=== PATIENT | male | born 1975 | race Hispanic/Latino ===

== ENCOUNTER 2021-02-04 12:49 | Emergency (ER) | payer OTHER ==
[~2021-02-04] VITALS: Ht 165.1 cm; Wt 59.0 kg
[2021-02-04 14:25] VITALS: BP 108/71
[2021-02-04 17:35] LABS: HEMATOCRIT 42.4 % (42-54); MEAN CORPUSCULAR HEMOGLOBIN 31.5 pg (27.0-33.0); MEAN CORPUSCULAR HGB CONC 34.4 g/dL (32.0-36.0); MEAN CORPUSCULAR VOLUME 91.4 fL (79-99); PLATELET COUNT (AUTO) 138 K/uL (130-400); RED BLOOD CELL COUNT(AUTO) 4.64 MIL/uL (4.50-6.20); RED CELL DISTRIBUTION WIDTH 12.6 % (11.0-15.5); WHITE BLOOD COUNT (AUTO) 6.5 K/uL (4.8-10.8)
[2021-02-04 17:37] LABS: APPEARANCE,URINE Clear (CLEAR); BILIRUBIN,URINE Negative (NEGATIVE); COLOR,URINE Yellow (YELLOW); GLUCOSE, URINE (UA) Negative (NEGATIVE); KETONES,URINE Trace mg/dL (NEGATIVE); LEUKOCYTE ESTERASE ,URINE Negative (NEGATIVE); NITRATE,URINE Negative (NEGATIVE); OCCULT BLOOD,URINE Negative (NEGATIVE); PH,URINE 5.5 (5.0-8.0); PROTEIN,URINE Negative (NEGATIVE); UROBILINOGEN,URINE 0.2 mg/dL (0.2-1.0)
[2021-02-04 17:42] LABS: CREATININE 0.9 mg/dL (0.5-1.5); POTASSIUM 4.1 mmol/L (3.5-5.1)
[2021-02-04 18:13] LABS: EOSINOPHILS % (MANUAL) 2 % (1-6); LYMPHOCYTES % (MANUAL) 28 % (22-44); MAN.DIFF COMMENT-IMPRESSION MANUAL DIFFERENTIAL; MONOCYTES % (MANUAL) 2 % (2-9); SEGMENTED NEUTROPHILS % 68 % (40-70)
[2021-02-04 18:14] LABS: PLATELET MORPHOLOGY COMMENT ADEQUATE
[2021-02-04] MEDS ORDERED: ORPH100 PO (19:11)
[2021-02-04] MEDS ORDERED: IBUP-2077 PO (19:11)
== END 2021-02-04 19:28 | disposition home or self-care (01) ==
LOC: EDH 12:49
DX: R07.89 Other chest pain (principal); M54.6 Pain in thoracic spine; M79.601 Pain in right arm; R42 Dizziness and giddiness; V49.49XA Driver injured in collision with other motor vehicles in traffic accident, initial encounter; Y93.89 Activity, other specified; Y92.89 Other specified places as the place of occurrence of the external cause; Y99.8 Other external cause status
CPT/HCPCS: 36415; 71045; 71100; 72050; 80048; 81003; 85025

== ENCOUNTER 2022-09-15 23:15 | Inpatient (IN) | payer OTHER ==
[~2022-09-15] VITALS: Ht 170.2 cm; Wt 65.9 kg
[~2022-09-15 23:15] MED LIST: IBUP-2077 PO; ORPH100 PO
[2022-09-16] MEDS ORDERED: MORPHINE 4 MG SYG IVP ONE ×2 (01:00→03:00)
[2022-09-16] MEDS ORDERED: ONDANSETRON 4MG INJ IVP ONE (01:30)
[2022-09-16] MEDS ORDERED: ACETAMINOPHEN 325 MG TAB PO PRN ×2 (02:00)
[2022-09-16] MEDS ORDERED: LACTULOSE 20 GM/30 ML UDCUP PO PRN (02:00)
[2022-09-16] MEDS ORDERED: MORPHINE 2 MG SYG IV PRN (02:00)
[2022-09-16] MEDS ORDERED: LACTATED RINGERS 1000ML 1,000 ML IV SCH (02:00)
[2022-09-16] MEDS ORDERED: ONDANSETRON 4MG INJ IV PRN (02:00)
[2022-09-16 03:00] VITALS: BP 118/70
[2022-09-16 05:19] LABS: BASOPHILS % (AUTO) 0.1 % (0.0-5.0); EOSINOPHILS % (AUTO) 0.1 % (0.0-8.0); HEMATOCRIT 34.5 % (42-54); LYMPHOCYTES % (AUTO) 13.2 % (21.0-51.0); MEAN CORPUSCULAR HEMOGLOBIN 31.8 pg (27.0-33.0); MEAN CORPUSCULAR HGB CONC 33.6 g/dL (32.0-36.0); MEAN CORPUSCULAR VOLUME 94.5 fL (79-99); MONOCYTES % (AUTO) 6.3 % (3.0-13.0); NEUTROPHILS % (AUTO) 79.8 % (40.0-77.0); PLATELET COUNT (AUTO) 193 K/uL (130-400); RED BLOOD CELL COUNT(AUTO) 3.65 MIL/uL (4.50-6.20); RED CELL DISTRIBUTION WIDTH 12.1 % (11.0-15.5); WHITE BLOOD COUNT (AUTO) 10.3 K/uL (4.8-10.8)
[2022-09-16 05:27] LABS: INR 0.94 (0.85-1.15); PROTHROMBIN TIME 10.9 SEC (9.6-11.6)
[2022-09-16 05:29] LABS: PARTIAL THROMBOPLASTIN TIME 26.4 SEC (26.3-35.5)
[2022-09-16 05:47] LABS: ALBUMIN 3.6 g/dL (3.5-5.0); CREATININE 0.8 mg/dL (0.5-1.5); POTASSIUM 3.8 mmol/L (3.5-5.1); TOTAL PROTEIN, SERUM 6.6 g/dL (6.0-8.3)
[2022-09-16 08:00] VITALS: BP 99/57
[2022-09-16] MEDS: FAMOTIDINE 20MG VIAL IV SCH ×2 (08:26→19:25)
[2022-09-16] MEDS ORDERED: ACETAMINOPHEN 500 MG TABLET PO PRN (11:00)
[2022-09-16] MEDS ORDERED: HYDROMORPHONE 1 MG INJ IM PRN (11:00)
[2022-09-16 11:31] VITALS: BP 115/74
[2022-09-16] MEDS: HYDROMORPHONE 1 MG INJ IV PRN ×2 (11:38→20:09)
[2022-09-16] MEDS: KETOROLAC 15MG/ML VIAL (15MG/ML) IV PRN (14:32)
[2022-09-16 15:46] VITALS: BP 104/63
[2022-09-16 20:34] VITALS: BP 122/74
[2022-09-16 23:31] VITALS: BP 114/76
[2022-09-17] MEDS: KETOROLAC 15MG/ML VIAL (15MG/ML) IV PRN ×2 (03:07→15:50)
[2022-09-17 04:07] VITALS: BP 106/62
[2022-09-17 06:59] LABS: BASOPHILS % (AUTO) 0.3 % (0.0-5.0); EOSINOPHILS % (AUTO) 1.1 % (0.0-8.0); HEMATOCRIT 32.2 % (42-54); LYMPHOCYTES % (AUTO) 24.5 % (21.0-51.0); MEAN CORPUSCULAR HEMOGLOBIN 31.7 pg (27.0-33.0); MEAN CORPUSCULAR HGB CONC 33.5 g/dL (32.0-36.0); MEAN CORPUSCULAR VOLUME 94.4 fL (79-99); NEUTROPHILS % (AUTO) 66.8 % (40.0-77.0); PLATELET COUNT (AUTO) 165 K/uL (130-400); RED BLOOD CELL COUNT(AUTO) 3.41 MIL/uL (4.50-6.20); WHITE BLOOD COUNT (AUTO) 6.2 K/uL (4.8-10.8)
[2022-09-17 07:15] LABS: CREATININE 0.8 mg/dL (0.5-1.5); POTASSIUM 4.1 mmol/L (3.5-5.1)
[2022-09-17 08:00] VITALS: BP 109/65
[2022-09-17] MEDS: FAMOTIDINE 20MG VIAL IV SCH ×2 (08:27→21:22)
[2022-09-17] MEDS: HYDROMORPHONE 1 MG INJ IV PRN ×2 (10:04→21:46)
[2022-09-17 12:00] VITALS: BP 116/75
[2022-09-17 16:00] VITALS: BP 106/64
[2022-09-17 19:54] VITALS: BP 119/71
[2022-09-18] VITALS (30 sets, daily range): BP systolic 104–141; BP diastolic 57–89
[2022-09-18] MEDS: KETOROLAC 15MG/ML VIAL (15MG/ML) IV PRN ×2 (00:17→08:43)
[2022-09-18] MEDS: HYDROMORPHONE 1 MG INJ IV PRN (05:02)
[2022-09-18 05:23] LABS: BASOPHILS % (AUTO) 0.7 % (0.0-5.0); EOSINOPHILS % (AUTO) 2.2 % (0.0-8.0); HEMATOCRIT 31.3 % (42-54); LYMPHOCYTES % (AUTO) 28.2 % (21.0-51.0); MEAN CORPUSCULAR HEMOGLOBIN 31.5 pg (27.0-33.0); MEAN CORPUSCULAR HGB CONC 33.9 g/dL (32.0-36.0); MEAN CORPUSCULAR VOLUME 92.9 fL (79-99); MONOCYTES % (AUTO) 9.3 % (3.0-13.0); NEUTROPHILS % (AUTO) 58.5 % (40.0-77.0); PLATELET COUNT (AUTO) 166 K/uL (130-400); RED BLOOD CELL COUNT(AUTO) 3.37 MIL/uL (4.50-6.20); RED CELL DISTRIBUTION WIDTH 11.9 % (11.0-15.5); WHITE BLOOD COUNT (AUTO) 4.5 K/uL (4.8-10.8)
[2022-09-18 05:59] LABS: ALBUMIN 3.4 g/dL (3.5-5.0); CREATININE 0.9 mg/dL (0.5-1.5); POTASSIUM 3.6 mmol/L (3.5-5.1); TOTAL PROTEIN, SERUM 6.7 g/dL (6.0-8.3)
[2022-09-18] MEDS: FAMOTIDINE 20MG VIAL IV SCH ×2 (08:40→21:00)
[2022-09-18] MEDS ORDERED: LACTATED RINGERS 1000ML 1,000 ML IV ONE (11:28)
[2022-09-18] MEDS ORDERED: ROPIVACAINE 0.5% 5MG/ML 30ML IJ ONE (12:03)
[2022-09-18] MEDS ORDERED: KETAMINE 50MG/ML SYRINGE 50 MG/ML DISP.SYRIN ONE (12:03)
[2022-09-18] MEDS ORDERED: SUCCINYLCHOLINE CHLORIDE 20 MG/ML 10 ML VIAL ONE (12:05)
[2022-09-18] MEDS ORDERED: LIDOCAINE PF 100MG/5ML (2%) SYRINGE 5ML ONE (12:06)
[2022-09-18] MEDS ORDERED: PROPOFOL 10 MG/ML 20ML VIAL IV ONE (12:06)
[2022-09-18] MEDS ORDERED: ROCURONIUM 10MG/1ML SYR 10 MG/ML ML ONE (12:06)
[2022-09-18] MEDS ORDERED: MIDAZOLAM HCL 1 MG/ML 2ML VIAL ONE (12:07)
[2022-09-18] MEDS ORDERED: FENTANYL CITRATE PF 50 MCG/1 ML 2ML VIAL ONE (12:08)
[2022-09-18] MEDS ORDERED: CEFAZOLIN SODIUM 1 GM VIAL IVPB ONE (12:30)
[2022-09-18] MEDS ORDERED: EPHEDRINE SULFATE 50 MG/ML AMPULE ONE (12:49)
[2022-09-18] MEDS ORDERED: CEFAZOLIN SODIUM 1 GM VIAL ONE ×2 (12:55→12:56)
[2022-09-18] MEDS ORDERED: GLYCOPYRROLATE 1 MG/5 ML SYRINGE ONE (13:34)
[2022-09-18] MEDS ORDERED: NEOSTIGMINE 5MG/5ML SYR IV ONE (13:35)
[2022-09-18] MEDS ORDERED: ONDANSETRON 4MG INJ ONE (13:35)
[2022-09-18] MEDS: LACTATED RINGERS 1000ML 1,000 ML IV SCH ×2 (22:30→23:53)
[2022-09-19 04:08] VITALS: BP 107/69
[2022-09-19] MEDS: KETOROLAC 15MG/ML VIAL (15MG/ML) IV PRN ×2 (04:42→14:00)
[2022-09-19 04:48] LABS: MEAN CORPUSCULAR HEMOGLOBIN 31.6 pg (27.0-33.0); MEAN CORPUSCULAR HGB CONC 34.1 g/dL (32.0-36.0); MEAN CORPUSCULAR VOLUME 92.7 fL (79-99); RED BLOOD CELL COUNT(AUTO) 3.13 MIL/uL (4.50-6.20); RED CELL DISTRIBUTION WIDTH 11.9 % (11.0-15.5); WHITE BLOOD COUNT (AUTO) 6.8 K/uL (4.8-10.8)
[2022-09-19 04:59] LABS: CREATININE 0.8 mg/dL (0.5-1.5); POTASSIUM 3.8 mmol/L (3.5-5.1)
[2022-09-19 08:00] VITALS: BP 108/66
[2022-09-19] MEDS: LACTATED RINGERS 1000ML 1,000 ML IV SCH ×3 (10:01→21:01)
[2022-09-19] MEDS: FAMOTIDINE 20MG VIAL IV SCH ×2 (10:01→20:32)
[2022-09-19 11:36] VITALS: BP 113/68
[2022-09-19 16:00] VITALS: BP 108/70
[2022-09-19 19:51] VITALS: BP 114/73
[2022-09-19] MEDS: HYDROMORPHONE 1 MG INJ IV PRN (21:12)
[2022-09-19 23:11] VITALS: BP 105/66
[2022-09-20 03:09] VITALS: BP 112/72
[2022-09-20] MEDS: LACTATED RINGERS 1000ML 1,000 ML IV SCH ×2 (03:44→05:49)
[2022-09-20] MEDS: KETOROLAC 15MG/ML VIAL (15MG/ML) IV PRN ×2 (05:08→15:00)
[2022-09-20 05:32] LABS: HEMATOCRIT 25.9 % (42-54); MEAN CORPUSCULAR HGB CONC 34.4 g/dL (32.0-36.0); MEAN CORPUSCULAR VOLUME 93.2 fL (79-99); RED BLOOD CELL COUNT(AUTO) 2.78 MIL/uL (4.50-6.20); RED CELL DISTRIBUTION WIDTH 11.9 % (11.0-15.5); WHITE BLOOD COUNT (AUTO) 5.6 K/uL (4.8-10.8)
[2022-09-20 08:00] VITALS: BP 109/65
[2022-09-20] MEDS: FAMOTIDINE 20MG VIAL IV SCH (09:09)
[2022-09-20 12:00] VITALS: BP 103/62
[2022-09-20] MEDS ORDERED: TRAM50TA4 PO (12:26)
[2022-09-20] MEDS ORDERED: CEPH500B PO (12:33)
== END 2022-09-20 15:15 | disposition home or self-care (01) | DRG 494 ==
LOC: EDH 23:15 → EDHIP 23:16 → 3BH 09-16 03:00
PROVIDERS: ADMIT Hospitalist; ATTEND Hospitalist
PROC: 0QSG04Z Reposition Right Tibia with Internal Fixation Device, Open Approach (ICD-10-PCS; principal; 2022-09-18 12:28)
DX: S82.291A Other fracture of shaft of right tibia, initial encounter for closed fracture (principal); S82.491A Other fracture of shaft of right fibula, initial encounter for closed fracture; Z20.822 Contact with and (suspected) exposure to COVID-19; W18.39XA Other fall on same level, initial encounter; Y93.89 Activity, other specified; Y92.89 Other specified places as the place of occurrence of the external cause; Y99.8 Other external cause status
CPT/HCPCS: 36415; 73590; 73600; 80048; 80053; 83735; 85025; 85027; 85610; 85730; 87635; 97039; G0378; J0330; J0690; J1170; J1885; J2001; J2250; J2270; J2405; J2704; J2710; J2795; J3010; J3490; J7120